=== PATIENT | male | born 1955 | race Caucasian/White ===

== ENCOUNTER 2023-06-20 09:12 | Outpatient (CLI) | payer MEDICARE, OTHER ==
[2023-06-20 09:29] LABS: BASOPHILS % (AUTO) 0.7 %; EOSINOPHILS # (AUTO) 0.1 10^3/uL (0.0-0.7); EOSINOPHILS % (AUTO) 2.3 %; HCT - HEMATOCRIT 40.9 % (42.0-52.0); HGB - HEMOGLOBIN 13.9 g/dL (14.0-18.0); LYMPHOCYTES # (AUTO) 1.4 10^3/uL (1.5-3.5); LYMPHOCYTES % (AUTO) 23.1 %; MEAN CORPUSCULAR VOLUME 94.2 fL (80.0-94.0); MEAN PLATELET VOLUME 9.7 fL (7.4-11.4); MONOCYTES # (AUTO) 0.5 10^3/uL (0.0-1.0); MONOCYTES % (AUTO) 8.6 %; NEUTROPHILS # (AUTO) 3.9 10^3/uL (1.5-6.6); PLT - PLATELET COUNT 242 10^3/uL (130-450); RED BLOOD COUNT 4.34 10^6/uL (4.70-6.10); RED CELL DISTRIBUTION WIDTH 12.3 % (12.0-15.0)
[2023-06-20 09:42] LABS: ALBUMIN 4.1 g/dL (3.2-5.5); ALBUMIN/GLOBULIN RATIO 1.4 (1.0-2.2); ALKALINE PHOSPHATASE 53 IU/L (42-121); ALT ALANINE AMINOTRANSFERASE 11 IU/L (10-60); AST ASPARTATE AMINOTRANSFERASE 14 IU/L (10-42); BILIRUBIN,TOTAL 1.2 mg/dL (0.2-1.0); BUN - BLOOD UREA NITROGEN 17 mg/dL (6-20); CALCIUM 9.4 mg/dL (8.5-10.3); CARBON DIOXIDE - CO2 32 mmol/L (21-32); CHLORIDE 105 mmol/L (101-111); CHOL/HDL RATIO 4.2 (<5.0); CHOLESTEROL 197 mg/dL; CREATININE 0.9 mg/dL (0.6-1.3); GFR - MDRD 83 (>89); GLUCOSE 98 mg/dL (74-104); HDL CHOLESTEROL 47 mg/dL; LDL CHOLESTEROL,CALCULATED 121 mg/dL; LDL/HDL RATIO 2.6 (<3.6); POTASSIUM 4.2 mmol/L (3.5-4.5); SODIUM 139 mmol/L (135-145); TOTAL PROTEIN 7.1 g/dL (6.4-8.9); TRIGLYCERIDES 145 mg/dL (48-352); VLDL CHOLESTEROL 29 mg/dL
== END 2023-06-20 09:13 | disposition home or self-care (01) ==
LOC: LAB 09:12
PROVIDERS: ATTEND Nurse Practitioner Family
DX: E78.5 Hyperlipidemia, unspecified (principal); N40.0 Benign prostatic hyperplasia without lower urinary tract symptoms; E55.9 Vitamin D deficiency, unspecified
CPT/HCPCS: 36415; 80053; 80061; 82306; 83721; 84443; 85025

== ENCOUNTER 2023-06-21 13:37 | Outpatient (CLI) | payer MEDICARE, OTHER ==
--- NOTE | 2023-06-21 21:06 | Ultrasound Report ---
PROCEDURE: Extremity Soft Tissue Limited INDICATIONS: RIGHT LOWER LIMB MASS TECHNIQUE: Real-time scanning was performed of the right lower leg, with image documentation. COMPARISON: None. FINDINGS: Palpable abnormality at the medial aspect of the calf corresponds to a dilated varicose vein with int ernal occlusive thrombus. Multiple adjacent patent varicose veins are also noted. IMPRESSION: Superficial thrombophlebitis involving a varicose vein in the subcutaneous tissues of the medial righ t calf, which corresponds to the palpable area of concern. Additional patent varicose veins are also noted. Reviewed by: Alexis Parra MD on 06/21/2023 9:05 PM PDT Approved by: Alexis Parra MD on 06/21/2023 9:05 PM PDT Station ID: [id number]
== END 2023-06-21 13:38 | disposition home or self-care (01) ==
LOC: DI 13:37
PROVIDERS: ATTEND Nurse Practitioner Family
DX: I80.251 Phlebitis and thrombophlebitis of right calf muscular vein (principal)

== ENCOUNTER 2023-08-31 18:23 | Outpatient (CLI) | payer MEDICARE, OTHER ==
--- NOTE | 2023-09-01 15:41 | Ultrasound Report ---
PROCEDURE: Duplex Ext Veins Right INDICATIONS: SUPERFICIAL THROMBOPHLEBITIS TECHNIQUE: Real-time imaging, as well as color and pulse Doppler interrogation, were performed of the lower extr emity deep veins from the inguinal ligament to the popliteal fossa. Attempted visualization of the ca lf veins was performed. COMPARISON: Right lower extremity targeted ultrasound on June 21, 2023. FINDINGS: The deep veins are normally compressible, and free of intraluminal thrombus. Color and pu lse Doppler demonstrate normal phasic intraluminal flow. There is normal augmentation response to di stal compression maneuver. Compared to June 21, 2023, the previously seen bulge in the medial right calf demonstrates varicose v eins with no visualized thrombus. IMPRESSION: 1.No deep venous thrombosis of the visualized lower extremity. 2.Previously seen superficial thrombophlebitis in the medial right calf varicose veins corresponding to a palpable lump is no longer seen. Reviewed by: Delfin Jade MD on 09/01/2023 3:40 PM PDT Approved by: Delfin Jade MD on 09/01/2023 3:40 PM PDT Station ID: [id number]
== END 2023-08-31 18:24 | disposition home or self-care (01) ==
LOC: DI 18:23
PROVIDERS: ATTEND Nurse Practitioner Family
DX: I80.9 Phlebitis and thrombophlebitis of unspecified site (principal)